=== PATIENT | female | born 1950 | race Caucasian/White ===

== ENCOUNTER 2021-01-26 08:44 | Outpatient (CLI) | payer MEDICARE | END 2021-01-26 08:45 | disposition home or self-care (01) | LOC: CSHMAMMO 08:44 | PROVIDERS: ATTEND Family Medicine | DX: N63.42 Unspecified lump in left breast, subareolar (principal) | CPT/HCPCS: 76642; 77065; G0279 ==

== ENCOUNTER 2021-08-28 08:48 | Outpatient (CLI) | payer MEDICARE | END 2021-08-28 08:49 | disposition home or self-care (01) | LOC: CSHMAMMO 08:48 | PROVIDERS: ATTEND Nurse Practitioner Family | DX: N63.20 Unspecified lump in the left breast, unspecified quadrant (principal) | CPT/HCPCS: 76642; 77066; G0279 ==

== ENCOUNTER 2022-11-26 13:51 | Outpatient (CLI) | payer MEDICARE | END 2022-11-26 13:52 | disposition home or self-care (01) | LOC: CSHMAMMO 13:51 | PROVIDERS: ATTEND Family Medicine | DX: R92.8 Other abnormal and inconclusive findings on diagnostic imaging of breast (principal); N63.42 Unspecified lump in left breast, subareolar | CPT/HCPCS: 76642; 77066; G0279 ==

== ENCOUNTER 2023-08-19 13:17 | Outpatient (CLI) | payer MEDICARE | END 2023-08-19 13:18 | disposition home or self-care (01) | LOC: CSHMAMMO 13:17 | PROVIDERS: ATTEND Family Medicine | DX: R92.8 Other abnormal and inconclusive findings on diagnostic imaging of breast (principal); N63.21 Unspecified lump in the left breast, upper outer quadrant | CPT/HCPCS: 76642; 77065; G0279 ==

== ENCOUNTER 2024-10-14 21:09 | Emergency (ER) | payer MEDICARE ==
[~2024-10-14 21:09] MED LIST: Iopamidol 300 61% 100 ML VIAL FS ONE
[2024-10-14] MEDS ORDERED: Bacitracin 1 PK ONE (21:30)
[2024-10-14] MEDS ORDERED: Acetaminophen 500 MG TAB ONE (21:35)
[2024-10-14] MEDS ORDERED: Lidocaine 1% w/Epinephrine 1:200K 30 ML VIAL ONE (21:39)
[2024-10-14 22:08] LABS: #Basophils 0.05 10x3/uL (0.0-0.2); #Eosinophils 0.11 10x3/uL (0.0-0.5); #Monocytes 0.59 10x3/uL (0.0-1.1); #Neutrophils 3.93 10x3/uL (1.5-8.4); %Basophils 0.7 % (0.0-2.0); %Eosinophils 1.5 % (0.0-6.0); %Lymphocytes 34.3 % (18.0-47.0); %Monocytes 8.3 % (0.0-10.0); %Neutrophils 54.9 % (40.0-75.0); Hematocrit 36.4 % (34.9-44.5); Hemoglobin 11.6 g/dL (12.0-15.5); Mean Corpuscular Hemoglobin 30.1 pg (27.0-33.0); Mean Corpuscular Volume 94.3 fL (81.6-98.3); Platelet Count 326 10x3/uL (150-450); Red Blood Cell (RBC) Count 3.86 10x6/uL (3.90-5.03); White Blood Cell (WBC) Count 7.15 10x3/uL (3.5-10.5)
[2024-10-14 22:20] LABS: Potassium 3.6 mmol/L (3.5-5.1); Sodium 139 mmol/L (136-145)
[2024-10-14 22:21] LABS: ALT (SGPT) 20 U/L (Less than 34); AST (SGOT) 31 U/L (11-34); Albumin 3.9 g/dL (3.1-4.5); Alkaline Phosphatase 206 U/L (40-110); Anion Gap 13 mmol/L (10-20); BUN (Urea Nitrogen) 22 mg/dL (9.8-20.1); Bilirubin, Total 0.2 mg/dL (0.3-1.2); Calc. Creatinine Clearance 0 mL/min (70-130); Calcium 8.7 mg/dL (7.8-10.44); Carbon Dioxide 24 mmol/L (23-31); Chloride 106 mmol/L (98-107); Globulin 3.2 g/dL (2.4-3.5); Glucose 102 mg/dL (83-110)
== END 2024-10-14 23:34 ==
LOC: CSHERS 21:09
DX: S51.012A Laceration without foreign body of left elbow, initial encounter (principal); S20.212A Contusion of left front wall of thorax, initial encounter; S70.11XA Contusion of right thigh, initial encounter; W18.2XXA Fall in (into) shower or empty bathtub, initial encounter; Y93.E1 Activity, personal bathing and showering
CPT/HCPCS: 12002; 71260; 74177; 80053; 85025; Q9967

== ENCOUNTER 2024-10-18 10:33 | Day surgery (SDC) | payer MEDICARE ==
[2024-10-15 12:32] VITALS: BMI 25.1
[2024-10-18] MEDS ORDERED: Acetaminophen 500 MG TAB ONE (11:01)
[2024-10-18] MEDS ORDERED: Ketorolac Tromethamine 30 MG (1 mL) VIAL ONE (11:01)
[2024-10-18] MEDS ORDERED: PROPOFOL 20 ML ONE (11:15)
[2024-10-18] MEDS ORDERED: Ondansetron PF 4 MG/2 ML Vial ONE (11:16)
[2024-10-18] MEDS ORDERED: Lidocaine 2% MPF 10 ML AMP (For Epidural Use) ONE (11:40)
[2024-10-18] MEDS ORDERED: Bupivacaine/Epinephrine 0.25% 30 ML VIAL ONE (11:41)
[2024-10-18] MEDS ORDERED: CEFAZOLIN 2 GM VIAL ONE (12:07)
[2024-10-18] MEDS ORDERED: PHENYLEPHRINE-NS 100 MCG/ML 10 ML SYRINGE ONE (13:11)
[2024-10-18] MEDS ORDERED: HYDROcodone/Acetaminophen 5/325 mg Tablet ONE (15:25)
== END 2024-10-18 15:55 | disposition home or self-care (01) ==
LOC: CSHSDC 10:33
PROVIDERS: ATTEND Specialist
PROC: 0HBU0ZZ Excision of Left Breast, Open Approach (ICD-10-PCS; principal; 2024-10-18)
PROC: 07B60ZZ Excision of Left Axillary Lymphatic, Open Approach (ICD-10-PCS; 2024-10-18)
DX: C50.412 Malignant neoplasm of upper-outer quadrant of left female breast (principal); E78.00 Pure hypercholesterolemia, unspecified; F41.9 Anxiety disorder, unspecified; Z17.0 Estrogen receptor positive status [ER+]; Z17.21 Progesterone receptor positive status; Z17.32 Human epidermal growth factor receptor 2 negative status; Z87.891 Personal history of nicotine dependence; Z90.49 Acquired absence of other specified parts of digestive tract; Z90.710 Acquired absence of both cervix and uterus; Z79.899 Other long term (current) drug therapy
CPT/HCPCS: 19301; 38525; 38900; 76098; C1713; J1100; J1885; J2405; J2704; J3010; 88305; 88307; 88342